=== PATIENT | female | born 1990 | race African-American/Black ===

== ENCOUNTER 2021-03-24 00:43 | Emergency (ER) | payer OTHER ==
[~2021-03-24] VITALS: Ht 160 cm; Wt 79.8 kg
[2021-03-24] MEDS ORDERED: AUGMENTIN 500-1 EACH PO (01:21)
[2021-03-24] MEDS ORDERED: NAPROSYN500 MG PO (01:21)
[2021-03-24] MEDS ORDERED: HYDROCODONE/APAP 5MG-325MG TAB PO ONE ×2 (01:30)
== END 2021-03-24 01:46 | disposition home or self-care (01) ==
LOC: FSED 01:18
DX: K08.89 Other specified disorders of teeth and supporting structures (principal)
CPT/HCPCS: 99283

== ENCOUNTER 2021-05-24 17:21 | Emergency (ER) | payer OTHER ==
[~2021-05-24] VITALS: Ht 160 cm; Wt 79.4 kg
[~2021-05-24 17:21] MED LIST: AUGMENTIN 500-1 EACH PO; NAPROSYN500 MG PO
[2021-05-24] MEDS ORDERED: IBUPROFEN 600 MG TAB PO STA (18:54)
[2021-05-24] MEDS ORDERED: TAMIFLU75 MG PO (18:59)
[2021-05-24] MEDS ORDERED: IBUPROFEN600 MG PO (19:02)
[2021-05-24] MEDS ORDERED: IBUPROFEN 600 MG TAB ONE (19:09)
== END 2021-05-24 19:21 | disposition home or self-care (01) ==
LOC: FSED 18:01
DX: R50.9 Fever, unspecified (principal); J10.1 Influenza due to other identified influenza virus with other respiratory manifestations; R05.9 Cough, unspecified; B34.9 Viral infection, unspecified
CPT/HCPCS: 81003; 81025; 83518; 87400; 99283

== ENCOUNTER 2021-08-21 11:34 | Emergency (ER) | payer OTHER ==
[~2021-08-21] VITALS: Ht 160 cm; Wt 74.5 kg
[~2021-08-21 11:34] MED LIST changes: +IBUPROFEN600 MG PO; +TAMIFLU75 MG PO
[2021-08-21] MEDS ORDERED: AUGMENTIN 500-1 EACH PO (11:58)
[2021-08-21] MEDS ORDERED: LISINOPRIL10 MG PO (11:58)
[2021-08-21] MEDS ORDERED: CORTISPORIN-TC10 M1 RIGHT EAR (11:58)
[2021-08-21] MEDS ORDERED: CLONIDINE HCL 0.2 MG TAB PO ONE (12:00)
== END 2021-08-21 12:11 | disposition home or self-care (01) ==
LOC: FSED 11:55
DX: H66.91 Otitis media, unspecified, right ear (principal); I16.0 Hypertensive urgency; I10 Essential (primary) hypertension
CPT/HCPCS: 99282

== ENCOUNTER 2021-11-16 20:04 | Emergency (ER) | payer OTHER ==
[~2021-11-16] VITALS: Ht 160 cm; Wt 74.4 kg
[~2021-11-16 20:04] MED LIST changes: +CORTISPORIN-TC10 M1 RIGHT EAR; +LISINOPRIL10 MG PO
[2021-11-16] MEDS ORDERED: NAPROSYN500 MG PO (21:10)
[2021-11-16] MEDS ORDERED: KETOROLAC TROMETHAMINE 60 MG/2 ML VIAL IM ONE (21:15)
[2021-11-16] MEDS ORDERED: KETOROLAC TROMETHAMINE 60 MG/2 ML VIAL ONE (21:27)
== END 2021-11-16 21:42 | disposition home or self-care (01) ==
LOC: FSED 20:17
DX: M54.50 Low back pain, unspecified (principal); I10 Essential (primary) hypertension
CPT/HCPCS: 81003; 81025; 99282; J1885